=== PATIENT | female | born 1980 | race Caucasian/White ===

== ENCOUNTER 2016-12-08 11:44 | Emergency (ER) | payer OTHER ==
--- NOTE | 2016-12-08 14:00 | DIAGNOSTIC IMAGING REPORT ---
PROCEDURE: XR ANKLE 3 OR 4 VIEWS - RIGHT INDICATION: TRAUMA/INJURY TECHNIQUE: Four views. COMPARISON: None. FINDINGS: No fracture or dislocation. Normal ankle mortise. Prominent soft tissue swelling laterally. IMPRESSION: 1. Soft tissue swelling
--- NOTE | 2016-12-08 14:07 | ED ORDER SUMMARY ---
..... Patient: MICH LOVE OrderSheet [facility] VisitID: [id number] [address] [place] [address] 36y, F Registration Date/Time: 12/08/2016 ORDER SHEET Weight: 117.9 kg (stated) Allergies: Guaifenesin, morphine GENERAL ORDERS: Ankle 3 or 4V Right Urgent (12:15 12/08/2016 MWinterer R.N. per protocol) (Ack 12:23 Anders) (12:35 Dawit) Brigido Wrap (14:07 12/08/2016 HBivens A.R.N.P.) (14:18 MWinterer R.N.) MEDICATION ORDERS: Toradol IM 60 mg (NOW) (12:22 12/08/2016 HBivens A.R.N.P.) (Ack 12:23 MWinterer R.N.) (12:36 MWinterer R.N.) Hydrocodone-APAP PO 5/325 mg (NOW, HIGH ALERT MEDICATION) (13:54 12/08/2016 HBivens A.R.N.P.) (13:56 MWinterer R.N.) IV FLUIDS: ORDER SHEET NOTES: [Electronically signed by Maria De Jesus Mack A.R.N.P. (14:19 12/08/2016)] [Electronically signed by Keerthi Bell R.N. (14:27 12/08/2016)] [Electronically locked/signed by Keerthi Bell R.N. (14:27 12/08/2016)]
--- NOTE | 2016-12-08 14:07 | ED ORDER SUMMARY ---
..... Patient: MICH LOVE OrderSheet [facility] VisitID: [id number] [address] [place] [address] 36y, F Registration Date/Time: 12/08/2016 ORDER SHEET Weight: 117.9 kg (stated) Allergies: Guaifenesin, morphine GENERAL ORDERS: Ankle 3 or 4V Right Urgent (12:15 12/08/2016 MWinterer R.N. per protocol) (Ack 12:23 Anders) (12:35 Dawit) Brigido Wrap (14:07 12/08/2016 HBivens A.R.N.P.) (14:18 MWinterer R.N.) MEDICATION ORDERS: Toradol IM 60 mg (NOW) (12:22 12/08/2016 HBivens A.R.N.P.) (Ack 12:23 MWinterer R.N.) (12:36 MWinterer R.N.) Hydrocodone-APAP PO 5/325 mg (NOW, HIGH ALERT MEDICATION) (13:54 12/08/2016 HBivens A.R.N.P.) (13:56 MWinterer R.N.) IV FLUIDS: ORDER SHEET NOTES: [Electronically signed by Maria De Jesus Mack A.R.N.P. (14:19 12/08/2016)] [Electronically signed by Keerthi Bell R.N. (14:27 12/08/2016)] [Electronically locked/signed by Keerthi Bell R.N. (14:27 12/08/2016)]
--- NOTE | 2016-12-08 14:07 | ED NURSING NOTES ---
Clinical Report - Nurses [facility] [address] [place] [address] 12/08/2016 11:46 Patient: MICH LOVE TRIAGE Acuity: LEVEL 4. Chief Complaint: INJURY TO RIGHT ANKLE. Alert. No acute distress. SEPSIS SCREEN: Sepsis Screen. Negative (no infection suspected/documented). SACHA COMA SCORE: Sacha Coma Scale: 15- eyes open spontaneously (4); best verbal response- oriented x 4 (5); best motor response- obeys commands (6). --12:12 Keerthi Bell R.N. 12:03 12/08/16. BP: 132/94. HR: 88. RR: 12. O2 saturation: 100% on room air. Temp: 97.7 F (oral). Pain level now: 06/03. --12:12 Keerthi Bell R.N. Weight: 117.9 kg stated. Height/Length: 66 inches Per Patient. BMI: 42. --12:08 Keerthi Bell R.N. Medications Prazosin HCl Oral, at bedtime (2mg 1mg). Resperadone, at bedtime. --12:09 Keerthi Bell R.N. Hydrocodone-Acetaminophen Oral (Tablet 10-325 mg). --12:09 Keerthi Bell R.N. Trilictal 600 mg, 3x a day. --12:10 Keerthi Bell R.N. Allergies Guaifenesin. Definite Moderate(vomiting) morphine. Definite Severe(vomiting) (FRANCIS's) --12:10 Keerthi Bell R.N. Medication/allergy information source: the patient. --12:12 Keerthi Bell R.N. History Arrived by private vehicle. Historian: patient. Accompanied by (rey). Primary physician (Maryjo). This occurred just prior to arrival. Mechanism of injury: sustained a twisting injury. ( Pt states she was standing on a chair is is uncertain of how she hurt her ankle, but states she fell off chair but denies landing on her ankle.). Treatment PATTERNMAKER ALL AROUND: Applied bandage and ice. Took Tylenol. PAST MEDICAL HX: Last normal menstrual period now. SOCIAL HX: Current every day heavy tobacco smoker- less than 1 pack per day. No alcohol use or drug use. FALL RISK ASSESSMENT: Fall risk assessment completed. No fall risk identified. NUTRITIONAL RISK ASSESSMENT: The nutritional risk assessment revealed no deficiencies. FUNCTIONAL ASSESSMENT: Functional assessment: no impairments noted. LEARNING NEEDS ASSESSMENT: The learning needs assessment revealed no barriers. SKIN INTEGRITY ASSESSMENT: Skin integrity risk assessment completed. No skin integrity risk identified. --12:12 Keerthi Bell R.N. PROBLEMS: Abnormal Test. Diarrhea. Vomiting. Abdominal Pain. Back Pain. Polycystic Ovary Disease. Substance Abuse. ADHD - Attention Deficit Hyperactivity Disorder. Anxiety Reaction. Bipolar Disorder. PTSD. Muscle Strain, Lower Extremity. Sprain. --12:10 Keerthi Bell R.N. ADDITIONAL SURGERIES: Cholecystectomy. --12:10 Keerthi Bell R.N. Interventions ID band on patient. To treatment room. --12:12 Keerthi Bell R.N. PHYSICAL ASSESSMENT Ambulatory to room. GENERAL / NEURO / PSYCH: Oriented X 4. Alert. Appears in no acute distress. EXTREMITIES: Limited ROM present. Capillary refill is less than 2 seconds in the extremities. Extremity pulses are within normal limits. Pain with weight bearing. Limping gait. Neuro-vascular status intact to the extremity. Right ankle: tenderness and swelling. SKIN: Skin intact. Skin is warm and dry. --12:13 Keerthi Bell R.N. NURSING PROGRESS NOTES Reassurance given. Two patient identifiers checked. Call light placed in reach. Side rails up x 1. Bed placed in lowest position. Brakes of bed on. Patient ready for evaluation- chart flagged and JAMB CUTTER notified. --12:13 Keerthi Bell R.N. 12:36 12/08/2016 Toradol (Ketorolac Tromethamine) IM 60 mg given. Given in the left anterior lateral thigh. Allergies verified and confirmed 5 rights. --12:36 Keerthi Bell R.N. 13:56 12/08/2016 Hydrocodone-APAP (Hydrocodone-Acetaminophen) PO 5/325 mg Tablets 1 tab given. Allergies verified, confirmed 5 rights and sedative warning given to the patient. --13:56 Keerthi Bell R.N. 13:59 12/08/16. The patient reports no complaints, she is calm and resting quietly and she has had no adverse reaction. --13:59 Keerthi Bell R.N. 14:18 12/08/16. 4 inch brianna bandage applied to right ankle by nurse; distal pulses intact, sensation intact and motor function within normal limits. --14:18 Keerthi Bell R.N. DISPOSITION / DISCHARGE Departure time: 14:15 Dec 08 2016. Condition at departure: improved and stable. No learning barriers present. Discharge instructions provided and reviewed with the patient. Reviewed medication(s) side effects, precautions, dosing and course information. Prescription(s) given to the patient. Patient verbalized understanding. Written instructions provided in Khmer. The patient was discharged by the nurse practitioner. She was discharged home and accompanied by watershed coordinator. She left the Emergency Department ambulatory and via private vehicle. Banking Specialist driving. --14:26 Keerthi Bell R.N. 14:25 12/08/16. BP: 157/93. HR: 88. RR: 12. O2 saturation: 100% on room air. Temp: 97.9 F (oral). Pain level now: 02/01. --14:26 Keerthi Bell R.N. Locked/Released at 12/08/2016 14:27 by Keerthi Bell R.N.
--- NOTE | 2016-12-08 14:07 | ED NURSING NOTES ---
Clinical Report - Nurses [facility] [address] [place] [address] 12/08/2016 11:46 Patient: MICH LOVE TRIAGE Acuity: LEVEL 4. Chief Complaint: INJURY TO RIGHT ANKLE. Alert. No acute distress. SEPSIS SCREEN: Sepsis Screen. Negative (no infection suspected/documented). SACHA COMA SCORE: Sacha Coma Scale: 15- eyes open spontaneously (4); best verbal response- oriented x 4 (5); best motor response- obeys commands (6). --12:12 Keerthi Bell R.N. 12:03 12/08/16. BP: 132/94. HR: 88. RR: 12. O2 saturation: 100% on room air. Temp: 97.7 F (oral). Pain level now: 06/03. --12:12 Keerthi Bell R.N. Weight: 117.9 kg stated. Height/Length: 66 inches Per Patient. BMI: 42. --12:08 Keerthi Bell R.N. Medications Prazosin HCl Oral, at bedtime (2mg 1mg). Resperadone, at bedtime. --12:09 Keerthi Bell R.N. Hydrocodone-Acetaminophen Oral (Tablet 10-325 mg). --12:09 Keerthi Bell R.N. Trilictal 600 mg, 3x a day. --12:10 Keerthi Bell R.N. Allergies Guaifenesin. Definite Moderate(vomiting) morphine. Definite Severe(vomiting) (FRANCIS's) --12:10 Keerthi Bell R.N. Medication/allergy information source: the patient. --12:12 Keerthi Bell R.N. History Arrived by private vehicle. Historian: patient. Accompanied by (rey). Primary physician (Maryjo). This occurred just prior to arrival. Mechanism of injury: sustained a twisting injury. ( Pt states she was standing on a chair is is uncertain of how she hurt her ankle, but states she fell off chair but denies landing on her ankle.). Treatment EDUCATION SITE MANAGER: Applied bandage and ice. Took Tylenol. PAST MEDICAL HX: Last normal menstrual period now. SOCIAL HX: Current every day heavy tobacco smoker- less than 1 pack per day. No alcohol use or drug use. FALL RISK ASSESSMENT: Fall risk assessment completed. No fall risk identified. NUTRITIONAL RISK ASSESSMENT: The nutritional risk assessment revealed no deficiencies. FUNCTIONAL ASSESSMENT: Functional assessment: no impairments noted. LEARNING NEEDS ASSESSMENT: The learning needs assessment revealed no barriers. SKIN INTEGRITY ASSESSMENT: Skin integrity risk assessment completed. No skin integrity risk identified. --12:12 Keerthi Bell R.N. PROBLEMS: Abnormal Test. Diarrhea. Vomiting. Abdominal Pain. Back Pain. Polycystic Ovary Disease. Substance Abuse. ADHD - Attention Deficit Hyperactivity Disorder. Anxiety Reaction. Bipolar Disorder. PTSD. Muscle Strain, Lower Extremity. Sprain. --12:10 Keerthi Bell R.N. ADDITIONAL SURGERIES: Cholecystectomy. --12:10 Keerthi Bell R.N. Interventions ID band on patient. To treatment room. --12:12 Keerthi Bell R.N. PHYSICAL ASSESSMENT Ambulatory to room. GENERAL / NEURO / PSYCH: Oriented X 4. Alert. Appears in no acute distress. EXTREMITIES: Limited ROM present. Capillary refill is less than 2 seconds in the extremities. Extremity pulses are within normal limits. Pain with weight bearing. Limping gait. Neuro-vascular status intact to the extremity. Right ankle: tenderness and swelling. SKIN: Skin intact. Skin is warm and dry. --12:13 Keerthi Bell R.N. NURSING PROGRESS NOTES Reassurance given. Two patient identifiers checked. Call light placed in reach. Side rails up x 1. Bed placed in lowest position. Brakes of bed on. Patient ready for evaluation- chart flagged and RN CAMP notified. --12:13 Keerthi Bell R.N. 12:36 12/08/2016 Toradol (Ketorolac Tromethamine) IM 60 mg given. Given in the left anterior lateral thigh. Allergies verified and confirmed 5 rights. --12:36 Keerthi Bell R.N. 13:56 12/08/2016 Hydrocodone-APAP (Hydrocodone-Acetaminophen) PO 5/325 mg Tablets 1 tab given. Allergies verified, confirmed 5 rights and sedative warning given to the patient. --13:56 Keerthi Bell R.N. 13:59 12/08/16. The patient reports no complaints, she is calm and resting quietly and she has had no adverse reaction. --13:59 Keerthi Bell R.N. 14:18 12/08/16. 4 inch brianna bandage applied to right ankle by nurse; distal pulses intact, sensation intact and motor function within normal limits. --14:18 Keerthi Bell R.N. DISPOSITION / DISCHARGE Departure time: 14:15 Dec 08 2016. Condition at departure: improved and stable. No learning barriers present. Discharge instructions provided and reviewed with the patient. Reviewed medication(s) side effects, precautions, dosing and course information. Prescription(s) given to the patient. Patient verbalized understanding. Written instructions provided in Yoruba. The patient was discharged by the nurse practitioner. She was discharged home and accompanied by supplier quality. She left the Emergency Department ambulatory and via private vehicle. Unit Receptionist driving. --14:26 Keerthi Bell R.N. 14:25 12/08/16. BP: 157/93. HR: 88. RR: 12. O2 saturation: 100% on room air. Temp: 97.9 F (oral). Pain level now: 02/01. --14:26 Keerthi Bell R.N. Locked/Released at 12/08/2016 14:27 by Keerthi Bell R.N.
--- NOTE | 2016-12-08 14:07 | ED CLINICAL REPORT ---
Clinical Report - Physicians/Mid Levels [facility] [address] [place] [address] 12/08/2016 11:46 Patient: MICH LOVE Time Seen: 12:16; initial patient contact, initial documentation, patient care assumed. Arrived- By private vehicle. Historian- patient. HISTORY OF PRESENT ILLNESS Chief Complaint: Injury to the right ankle. The injury happened just prior to arrival. The patient slipped and sustained an inversion and eversion injury. Occurred at home. Patient is experiencing moderate pain. Patient denies injury to the head or neck. No other injury. REVIEW OF SYSTEMS The patient complains of pain on weight bearing. She has had swelling. No tingling, weakness, numbness or skin laceration. All systems otherwise negative, except as recorded above. PAST HISTORY See nurses notes. PROBLEMS: Abnormal Test. Diarrhea. Vomiting. Abdominal Pain. Back Pain. Polycystic Ovary Disease. Substance Abuse. ADHD - Attention Deficit Hyperactivity Disorder. Anxiety Reaction. Bipolar Disorder. PTSD. Muscle Strain, Lower Extremity. Sprain. --12:10 Keerthi Bell R.N. ADDITIONAL SURGERIES: Cholecystectomy. --12:10 Keerthi Bell R.N. SOCIAL HISTORY Heavy tobacco smoker. No alcohol use or drug use. No recent travel. Is a local resident. FAMILY HISTORY No significant family medical history. ADDITIONAL NOTES The nursing notes have been reviewed with agreement regarding the chief complaint, HPI, ROS, PMH and patient medications and allergies. PHYSICAL EXAM Vital Signs: 12/08/2016 12:03 BP: 132/94. HR: 88. RR: 12. O2 saturation: 100%. Temp: 97.7 F. Pain level now: 10. Have been reviewed as normal and appear to be correct. Appearance: Alert. Oriented X3. No acute distress. Head: Head atraumatic. Eyes: Pupils equal, round and reactive to light. Eyes normal inspection. Respiratory: No respiratory distress. Skin: Skin intact. Skin warm and dry. Extremities: Ankle injury present. Right lateral ankle: mild tenderness and swelling of the lateral malleolus. Limited ROM secondary to pain (diminished plantar flexion, dorsiflexion, inversion and eversion). Neurovascular intact distally. No ligamentous laxity present. No joint effusion. No erythema, laceration, abrasion, ecchymosis or puncture wound. No foot injury. Foot and ankle exam otherwise negative. Extremities otherwise negative. Gait: Abnormal gait. Gait not tested due to pain. (limped in for nurse). Neuro, Vascular and Tendons: Vascular status intact. Sensation intact. Motor intact. Tendon function intact. Neuro: Oriented X 3. No motor deficit. No sensory deficit. Note: isolated injury to ankle. LABS, X-RAYS, AND EKG X-Rays: X-rays are normal and reveal no acute disease (and reviewed by dr healy). Right ankle negative. The X-rays were independently viewed by me. PROGRESS AND PROCEDURES Patient and spouse counseled in person regarding the patient's stable condition, test results and diagnosis. 1400. Differential Diagnosis: Other possible considerations: fx vs sprain. Above considerations are based on history, physical exam and X-Ray data. Differential diagnosis was discussed with patient. Disposition: Discharged home in good and improved condition (14:07). Condition: good and stable. CLINICAL IMPRESSION Sprain of the tibiofibular ligament of the right ankle. INSTRUCTIONS Apply ice for 20 minutes four times a day for two days until better. Don't apply ice directly to skin. Wear elastic wrap (Brigido wrap) as directed for one weeks until better. Elevate affected areas above chest level for two days until better. Warnings: GENERAL WARNINGS: Return or contact your physician immediately if your condition worsens or changes unexpectedly, if not improving as expected, or if other problems arise. Specifically return if problem worsens. Prescription Medications: Naproxen 500 mg tablets: take 1 orally every 12 hours as needed for pain. Dispense twenty (20). No refills. [place] 5 mg / 325 mg tablets: take 1 orally every 6 hours as needed for pain. Dispense ten (10). No refill. Follow-up: Follow up with your doctor in about one week as needed. Call for an appointment. Summary of care provided to patient. Understanding of the discharge instructions verbalized by patient. (Electronically signed by Maria De Jesus Mack A.R.N.P. 12/08/2016 14:19)
--- NOTE | 2016-12-08 14:27 | ED MED RECONCILIATION SUMMARY ---
Patient: MICH LOVE Medication Reconciliation Report [facility] VisitID: [id number] [address] [place] [address] 36y, F Registration Date/Time: 12/08/2016 Weight: 117.9 kg Height/Length: 66 in. BMI: 42.0 ALLERGIES: Guaifenesin, morphine The patient's Home Medications are listed below: THE FOLLOWING MEDICATIONS NEED TO BE RECONCILED: Hydrocodone-Acetaminophen Oral (10-325 mg) Prazosin HCl Oral, at bedtime, 2mg 1mg Resperadone, at bedtime Trilictal 600 mg, 3x a day The source(s) of the original Home Medication information: patient The following Medications were given to the patient in the Emergency Department: Toradol [IM] IM 60 mg, administered: 12/08/2016 12:36:00 PM Hydrocodone-APAP [PO] PO 1 tab, administered: 12/08/2016 1:56:00 PM The following Medications were prescribed to the patient: Naproxen 500 mg tablets: take 1 orally every 12 hours as needed for pain. Dispense twenty (20). No refills. -- Maria De Jesus Mack, Ciera.R.N.P. [place] 5 mg / 325 mg tablets: take 1 orally every 6 hours as needed for pain. Dispense ten (10). No refill. -- Maria De Jesus Mack A.R.N.P.
--- NOTE | 2016-12-08 14:27 | ED MED RECONCILIATION SUMMARY ---
Patient: MICH LOVE Medication Reconciliation Report [facility] VisitID: [id number] [address] [place] [address] 36y, F Registration Date/Time: 12/08/2016 Weight: 117.9 kg Height/Length: 66 in. BMI: 42.0 ALLERGIES: Guaifenesin, morphine The patient's Home Medications are listed below: THE FOLLOWING MEDICATIONS NEED TO BE RECONCILED: Hydrocodone-Acetaminophen Oral (10-325 mg) Prazosin HCl Oral, at bedtime, 2mg 1mg Resperadone, at bedtime Trilictal 600 mg, 3x a day The source(s) of the original Home Medication information: patient The following Medications were given to the patient in the Emergency Department: Toradol [IM] IM 60 mg, administered: 12/08/2016 12:36:00 PM Hydrocodone-APAP [PO] PO 1 tab, administered: 12/08/2016 1:56:00 PM The following Medications were prescribed to the patient: Naproxen 500 mg tablets: take 1 orally every 12 hours as needed for pain. Dispense twenty (20). No refills. -- Maria De Jesus Mack, Ciera.R.N.P. [place] 5 mg / 325 mg tablets: take 1 orally every 6 hours as needed for pain. Dispense ten (10). No refill. -- Maria De Jesus Mack A.R.N.P.
--- NOTE | 2016-12-08 14:27 | ED DISCHARGE INSTRUCTIONS ---
Patient: MICH LOVE General Instructions [facility] VisitID: [id number] [place] [address] 36y, F Registration Date/Time: 12/08/2016 Sprain of the tibiofibular ligament of the right ankle. INSTRUCTIONS Apply ice for 20 minutes four times a day for two days until better. Don't apply ice directly to skin. Wear elastic wrap (Brigido wrap) as directed for one weeks until better. Elevate affected areas above chest level for two days until better. Warnings: GENERAL WARNINGS: Return or contact your physician immediately if your condition worsens or changes unexpectedly, if not improving as expected, or if other problems arise. Specifically return if problem worsens. Prescription Medications: Naproxen 500 mg tablets: take 1 orally every 12 hours as needed for pain. Dispense twenty (20). No refills. Benton 5 mg / 325 mg tablets: take 1 orally every 6 hours as needed for pain. Dispense ten (10). No refill. Follow-up: Follow up with your doctor in about one week as needed. Call for an appointment. Summary of care provided to patient. Understanding of the discharge instructions verbalized by patient. ADDITIONAL INFORMATION Sprain, Ankle,With X-Ray A sprain is an injury to the ligaments or capsule that holds a joint together. There are no broken bones. Most sprains take from four to six weeks to heal. If the ligament is completely torn (severe sprain), it can take several months to recover. Mild to moderate sprains may be treated with an elastic wrap or an in-shoe splint to provide support and prevent re-injury. A mild sprain may not require any additional support. A severe sprain may require surgery to repair. Home care The following guidelines will help you care for your injury at home: Stay off the injured leg as much as possible until you can walk on it without pain. If you have a lot of pain with walking, crutches or a walker may be prescribed. (These can be rented or purchased at many pharmacies and surgical or orthopedic supply stores). Follow your doctor's advice regarding when to begin bearing weight on that leg. Keep your leg elevated to reduce pain and swelling. When sleeping, place a pillow under the injured leg. When sitting, support the injured leg so it is level with your waist. This is very important during the first 48 hours. Apply an ice pack (ice cubes in a plastic bag, wrapped in a towel) over the injured area for 20 minutes every 12 hours the first day. You can place the ice pack directly over the splint/cast. If you were given a boot, open it to apply the ice pack. Continue with ice packs 34 times a day for the next two days, then as needed for the relief of pain and swelling. You may use acetaminophen or ibuprofen to control pain, unless another pain medicine was prescribed. If you have chronic liver or kidney disease or ever had a stomach ulcer or GI bleeding, talk with your doctor before using these medicines. You may return to sports after healing, when you can run without pain. A sprained ankle is at risk for re-injury during the first six weeks. During that time, protect your ankle with an in-shoe splint that prevents tilting of your ankle from side to side. This is very important if you do active work or play sports during that time. Follow-up care Any X-rays you had today dont show any broken bones, breaks, or fractures. Sometimes fractures dont show up on the first X-ray. Bruises and sprains can sometimes hurt as much as a fracture. These injuries can take time to heal completely. If your symptoms dont improve or they get worse, talk with your doctor. You may need a repeat X-ray. When to seek medical care Get prompt medical attention if any of the following occur: The plaster cast or splint gets wet or soft The fiberglass cast or splint gets wet and does not dry for 24 hours Pain or swelling increases, or redness appears Toes become cold, blue, numb or tingly Re-injure your ankle Brigido Wrap An "Brigido Bandage" refers to any elastic bandage wrap (2-6" wide). This is used to apply support and compression to an arm or leg. It will help prevent or reduce swelling also. When applying the bandage, it should not be stretched too tightly. A tight Brigido Wrap will reduce circulation and cause tingling or numbness in the hand or foot. It may increase the pain under the bandage. If you get these symptoms, remove the wrap and rest the limb. Symptoms should go away within 1-2 hours. Once symptoms go away, reapply the bandage with less stretch. If symptoms do not go away after 1-2 hours with the bandage off, call your doctor or return to this facility promptly. Naproxen Sodium Oral tablet What is this medicine? NAPROXEN (na PROX en) is a non-steroidal anti-inflammatory drug (NSAID). It is used to reduce swelling and to treat pain. This medicine may be used for dental pain, headache, or painful monthly periods. It is also used for painful joint and muscular problems such as arthritis, tendinitis, bursitis, and gout. How should I use this medicine? Take this medicine by mouth with a glass of water. Follow the directions on the prescription label. Take it with food if your stomach gets upset. Try to not lie down for at least 10 minutes after you take it. Take your medicine at regular intervals. Do not take your medicine more often than directed. Long-term, continuous use may increase the risk of heart attack or stroke. A special MedGuide will be given to you by the pharmacist with each prescription and refill. Be sure to read this information carefully each time. Talk to your set decorator regarding the use of this medicine in children. Special care may be needed. What side effects may I notice from receiving this medicine? Side effects that you should report to your doctor or health out of school hours care worker as soon as possible: black or bloody stools, blood in the urine or vomit blurred vision chest pain difficulty breathing or wheezing nausea or vomiting severe stomach pain skin rash, skin redness, blistering or peeling skin, hives, or itching slurred speech or weakness on one side of the body swelling of eyelids, throat, lips unexplained weight gain or swelling unusually weak or tired yellowing of eyes or skin Side effects that usually do not require medical attention (report to your doctor or health out of school hours care worker if they continue or are bothersome): constipation headache heartburn What may interact with this medicine? alcohol aspirin cidofovir diuretics lithium methotrexate other drugs for inflammation like ketorolac or prednisone pemetrexed probenecid warfarin What if I miss a dose? If you miss a dose, take it as soon as you can. If it is almost time for your next dose, take only that dose. Do not take double or extra doses. Where should I keep my medicine? Keep out of the reach of children. Store at room temperature between 15 and 30 degrees C (59 and 86 degrees F). Keep container tightly closed. Throw away any unused medicine after the expiration date. What should I tell my health care provider before I take this medicine? They need to know if you have any of these conditions: asthma cigarette smoker drink more than 3 alcohol containing drinks a day heart disease or circulation problems such as heart failure or leg edema (fluid retention) high blood pressure kidney disease liver disease stomach bleeding or ulcers an unusual or allergic reaction to naproxen, aspirin, other NSAIDs, other medicines, foods, dyes, or preservatives or trying to get breast-feeding What should I watch for while using this medicine? Tell your doctor or health out of school hours care worker if your pain does not get better. Talk to your doctor before taking another medicine for pain. Do not treat yourself. This medicine does not prevent heart attack or stroke. In fact, this medicine may increase the chance of a heart attack or stroke. The chance may increase with longer use of this medicine and in people who have heart disease. If you take aspirin to prevent heart attack or stroke, talk with your doctor or health out of school hours care worker. Do not take other medicines that contain aspirin, ibuprofen, or naproxen with this medicine. Side effects such as stomach upset, nausea, or ulcers may be more likely to occur. Many medicines available without a prescription should not be taken with this medicine. This medicine can cause ulcers and bleeding in the stomach and intestines at any time during treatment. Do not smoke cigarettes or drink alcohol. These increase irritation to your stomach and can make it more susceptible to damage from this medicine. Ulcers and bleeding can happen without warning symptoms and can cause . You may get drowsy or dizzy. Do not drive, use machinery, or do anything that needs mental alertness until you know how this medicine affects you. Do not stand or sit up quickly, especially if you are an older patient. This reduces the risk of dizzy or fainting spells. This medicine can cause you to bleed more easily. Try to avoid damage to your teeth and gums when you brush or floss your teeth. Hydrocodone Bitartrate, Acetaminophen Oral tablet What is this medicine? ACETAMINOPHEN; HYDROCODONE (a set a GORGE jeanie fen; vamshi droe KOE done) is a pain reliever. It is used to treat mild to moderate pain. How should I use this medicine? Take this medicine by mouth. Swallow it with a full glass of water. Follow the directions on the prescription label. If the medicine upsets your stomach, take the medicine with food or milk. Do not take more than you are told to take. Talk to your set decorator regarding the use of this medicine in children. This medicine is not approved for use in children. What side effects may I notice from receiving this medicine? Side effects that you should report to your doctor or health out of school hours care worker as soon as possible: allergic reactions like skin rash, itching or hives, swelling of the face, lips, or tongue breathing problems confusion feeling faint or lightheaded, falls stomach pain yellowing of the eyes or skin Side effects that usually do not require medical attention (report to your doctor or health out of school hours care worker if they continue or are bothersome): nausea, vomiting stomach upset What may interact with this medicine? alcohol antihistamines isoniazid medicines for depression, anxiety, or psychotic disturbances medicines for sleep muscle relaxants naltrexone narcotic medicines (opiates) for pain phenobarbital ritonavir tramadol What if I miss a dose? If you miss a dose, take it as soon as you can. If it is almost time for your next dose, take only that dose. Do not take double or extra doses. Where should I keep my medicine? Keep out of the reach of children. This medicine can be abused. Keep your medicine in a safe place to protect it from theft. Do not share this medicine with anyone. Selling or giving away this medicine is dangerous and against the law. Store at room temperature between 15 and 30 degrees C (59 and 86 degrees F). Protect from light. Keep container tightly closed. Throw away any unused medicine after the expiration date. Discard unused medicine and used packaging carefully. Pets and children can be harmed if they find used or lost packages. What should I tell my health care provider before I take this medicine? They need to know if you have any of these conditions: brain tumor Crohn's disease, inflammatory bowel disease, or ulcerative colitis drink more than 3 alcohol-containing drinks per day drug abuse or addiction head injury heart or circulation problems kidney disease or problems going to the bathroom liver disease lung disease, asthma, or breathing problems an unusual or allergic reaction to acetaminophen, hydrocodone, other opioid analgesics, other medicines, foods, dyes, or preservatives or trying to get breast-feeding What should I watch for while using this medicine? Tell your doctor or health out of school hours care worker if your pain does not go away, if it gets worse, or if you have new or a different type of pain. You may develop tolerance to the medicine. Tolerance means that you will need a higher dose of the medicine for pain relief. Tolerance is normal and is expected if you take the medicine for a long time. Do not suddenly stop taking your medicine because you may develop a severe reaction. Your body becomes used to the medicine. This does NOT mean you are addicted. Addiction is a behavior related to getting and using a drug for a non-medical reason. If you have pain, you have a medical reason to take pain medicine. Your doctor will tell you how much medicine to take. If your doctor wants you to stop the medicine, the dose will be slowly lowered over time to avoid any side effects. You may get drowsy or dizzy when you first start taking the medicine or change doses. Do not drive, use machinery, or do anything that may be dangerous until you know how the medicine affects you. Stand or sit up slowly. There are different types of narcotic medicines (opiates) for pain. If you take more than one type at the same time, you may have more side effects. Give your health care provider a list of all medicines you use. Your doctor will tell you how much medicine to take. Do not take more medicine than directed. Call emergency for help if you have problems breathing. The medicine will cause constipation. Try to have a bowel movement at least every 2 to 3 days. If you do not have a bowel movement for 3 days, call your doctor or health out of school hours care worker. Too much acetaminophen can be very dangerous. Do not take Tylenol (acetaminophen) or medicines that contain acetaminophen with this medicine. Many non-prescription medicines contain acetaminophen. Always read the labels carefully. You have been given the following additional information: Sprain, Ankle, With X-Ray Brigido Wrap Naproxen Sodium Oral tablet Hydrocodone Bitartrate, Acetaminophen Oral tablet (Electronically signed by Maria De Jesus Mack A.R.N.P. 12/08/2016 14:19)
--- NOTE | 2016-12-08 14:27 | ED MAR SUMMARY ---
..... Medication Administration Record [facility] [address] [place] [address] Patient: MICH LOVE Visit ID: [id number] 36y, F Weight: 117.9 kg Height/Length: 66 in BMI: 42 ALLERGIES: Guaifenesin, morphine Given 12:36 12/08/2016 Keerthi Bell, R.N. Medication Administered: TORADOL [IM] (KETOROLAC TROMETHAMINE), Dose: 60 mg IM. Medication Ordered: Toradol IM 60 mg (NOW). Given 13:56 12/08/2016 Keerthi Bell, R.N. Medication Administered: HYDROCODONE-APAP [PO] (HYDROCODONE-ACETAMINOPHEN), Dose: 1 tab 5/325 mg Tablets PO. Medication Ordered: Hydrocodone-APAP PO 5/325 mg (NOW, HIGH ALERT MEDICATION).
--- NOTE | 2016-12-08 14:27 | ED MAR SUMMARY ---
..... Medication Administration Record [facility] [address] [place] [address] Patient: MICH LOVE Visit ID: [id number] 36y, F Weight: 117.9 kg Height/Length: 66 in BMI: 42 ALLERGIES: Guaifenesin, morphine Given 12:36 12/08/2016 Keerthi Bell, R.N. Medication Administered: TORADOL [IM] (KETOROLAC TROMETHAMINE), Dose: 60 mg IM. Medication Ordered: Toradol IM 60 mg (NOW). Given 13:56 12/08/2016 Keerthi Bell, R.N. Medication Administered: HYDROCODONE-APAP [PO] (HYDROCODONE-ACETAMINOPHEN), Dose: 1 tab 5/325 mg Tablets PO. Medication Ordered: Hydrocodone-APAP PO 5/325 mg (NOW, HIGH ALERT MEDICATION).
== END 2016-12-08 14:15 | disposition home or self-care (01) ==
LOC: ED SRH 11:44
DX: S93.431A Sprain of tibiofibular ligament of right ankle, initial encounter (principal); W18.40XA Slipping, tripping and stumbling without falling, unspecified, initial encounter; Y93.9 Activity, unspecified; Y92.009 Unspecified place in unspecified non-institutional (private) residence as the place of occurrence of the external cause; Y99.9 Unspecified external cause status; F17.210 Nicotine dependence, cigarettes, uncomplicated; Z88.5 Allergy status to narcotic agent; Z88.8 Allergy status to other drugs, medicaments and biological substances

== ENCOUNTER 2017-04-27 08:59 | Emergency (ER) | payer OTHER ==
--- NOTE | 2017-04-27 10:54 | ED ORDER SUMMARY ---
..... Patient: MICH LOVE OrderSheet Merged [facility] VisitID: [id number] [address] [place] [address] 36y, F Registration Date/Time: 04/27/2017 ORDER SHEET Weight: 130.6 kg (stated) Allergies: morphine, Guaifenesin GENERAL ORDERS: UA-Culture if indicated Urgent (09:04/27/2017 Jenn Hein) (Ack 9:08 Isadora) (9:46 SRejose enrique R.N.) Urine Urgent (09:04/27/2017 Jenn Hein) (Ack 9:08 Isadora) (9:46 Reina R.N.) Bladder Scan (09:04/27/2017 Jenn Hein) (Ack 9:15 Reina R.N.) (9:46 Reina R.N.) MEDICATION ORDERS: Pyridium PO 200 mg (NOW) (10:51 04/27/2017 Jenn Hein) (Ack 10:56 SRejose enrique R.N.) (11:03 Reina R.N.) Macrobid PO 100 mg (NOW) (10:52 04/27/2017 Jenn Hein) (Ack 10:56 Reina R.N.) (11:03 Reina R.N.) IV FLUIDS: ORDER SHEET NOTES: [Electronically signed by Tiffany Westbrook R.N. (11:04 04/27/2017)] [Electronically signed by Rashad Mcdaniel Dr. (14:01 04/28/2017)] [Electronically locked/signed by Tiffany Westbrook R.N. (11:04 04/27/2017)]
--- NOTE | 2017-04-27 10:54 | ED ORDER SUMMARY ---
..... Patient: MICH LOVE OrderSheet [facility] VisitID: [id number] [address] [place] [address] 36y, F Registration Date/Time: 04/27/2017 ORDER SHEET Weight: 130.6 kg (stated) Allergies: morphine, Guaifenesin GENERAL ORDERS: UA-Culture if indicated Urgent (09:04/27/2017 Jenn Hein) (Ack 9:08 Isaodra) (9:46 SRejose enrique R.N.) Urine Urgent (09:04/27/2017 Jenn Hein) (Ack 9:08 Isadora) (9:46 Reina R.N.) Bladder Scan (09:04/27/2017 Jenn Hein) (Ack 9:15 Reina R.N.) (9:46 Reina R.N.) MEDICATION ORDERS: Pyridium PO 200 mg (NOW) (10:51 04/27/2017 Jenn Hein) (Ack 10:56 SRejose enrique R.N.) (11:03 Reina R.N.) Macrobid PO 100 mg (NOW) (10:52 04/27/2017 Jenn Hein) (Ack 10:56 Reina R.N.) (11:03 Reina R.N.) IV FLUIDS: ORDER SHEET NOTES: [Electronically signed by Tiffany Westbrook R.N. (11:04 04/27/2017)] [Electronically signed by Rashad Mcdaniel Dr. (14:01 04/28/2017)] [Electronically locked/signed by Tiffany Westbrook R.N. (11:04 04/27/2017)]
--- NOTE | 2017-04-27 10:54 | ED NURSING NOTES ---
Clinical Report - Nurses [facility] [address] [place] [address] 04/27/2017 9:00 Patient: MICH LOVE TRIAGE Triage time 09:06. Acuity: LEVEL 4. Chief Complaint: VAGINAL DISCHARGE and (" I can't pee"). Alert. No acute distress. SEPSIS SCREEN: Sepsis Screen. Negative (no infection suspected/documented). OFELIA COMA SCORE: Pooler Coma Scale: 15- eyes open spontaneously (4); best verbal response- oriented x 4 (5); best motor response- obeys commands (6). --09:14 Tiffany Westbrook R.N. 09:05 04/27/17. BP: 119/67. HR: 114. RR: 16. O2 saturation: 98%. Temp: 97.4 F. Pain level now: 410. Additional comments: RE HR: pt. states she does not like hospitals and is anxious. --09:14 Tiffany Westbrook R.N. Weight: 130.6 kg stated. Height/Length: 67 inches. BMI: 45.1. --09:13 Tiffany Westbrook R.N. Medications Prazosin HCl Oral 4mg, at bedtime. --09:09 Tiffany Westbrook R.N. Trileptal Oral 900mg , at bedtime. --09:10 Tiffany Westbrook R.N. RisperiDONE Oral 4 mg, at bedtime. --09:11 Tiffany Westbrook R.N. LaMICtal Oral (Tablet 150 mg), at bedtime. --09:11 Tiffany Westbrook R.N. MetFORMIN HCl Oral 1200mg daily. --09:11 Tiffany Westbrook R.N. Gabapentin Oral 1200mg , daily. --09:11 Tiffany Westbrook R.N. Vicodin Oral 10 mg, 2x a day. --09:12 Tiffany Westbrook R.N. Loratadine Oral. --09:12 Pietro, Tiffany, R.N. Omeprazole Oral. --09:12 Tiffany Westbrook R.N. Topamax Oral. --:13 Tiffany Westbrook R.N. Allergies morphine. --:13 Tiffany Westbrook R.N. Guaifenesin. --:13 Tiffany Westbrook R.N. History Arrived by private vehicle. Historian: patient. Accompanied by (Norma). Primary physician ([facility]). This started last night. PAST MEDICAL HX: Immunizations: up-to-date. Last normal menstrual period- 1 week ago. SOCIAL HX: Heavy tobacco smoker (cigarette). Regular alcohol use. (weekends). History of IV drug use: cocaine, narcotics, heroin, methamphetamines, marijuana, crack, benzodiazepines. (lasted used 2008). ABUSE ASSESSMENT: Abuse assessment: The patient was asked "Do you feel safe in your home?" and "Has anyone hurt you or threatened to hurt you?". No report of abuse. SELF HARM ASSESSMENT: A self harm assessment was performed. The patient answered "no" to the question "Do you have thoughts of harming or killing yourself?" and "Have you recently had thoughts about harming or killing others?". NUTRITIONAL RISK ASSESSMENT: The nutritional risk assessment revealed no deficiencies. FUNCTIONAL ASSESSMENT: Functional assessment: no impairments noted. LEARNING NEEDS ASSESSMENT: The learning needs assessment revealed no barriers. --:14 Tiffany Westbrook R.N. PROBLEMS: Diarrhea. Vomiting. Abdominal Pain. Back Pain. Polycystic Ovary Disease. Substance Abuse. ADHD - Attention Deficit Hyperactivity Disorder. Anxiety Reaction. Bipolar Disorder. PTSD. Sprain. --:13 Tiffany Westbrook R.N. ADDITIONAL SURGERIES: Cholecystectomy. --:14 Tiffany Westbrook R.N. Interventions ID band on patient. Ambulatory. --:14 Tiffany Westbrook R.N. PHYSICAL ASSESSMENT Ambulatory to room. GENERAL / NEURO / PSYCH: Alert. Appears in no acute distress. HEENT: Mucous membranes are pink. RESPIRATORY: Respirations not labored. CVS: Capillary refill less than 2 seconds. GI / : Abdomen soft and nontender. A scant amount of vaginal discharge present ("bright yellow mucus"). SKIN: Skin is warm and dry. --:14 Tiffany Westbrook R.N. NURSING PROGRESS NOTES Head of bed elevated. Two patient identifiers checked. Call light placed in reach. Side rails up x 2. Bed placed in lowest position. Brakes of bed on. Patient ready for evaluation- chart flagged. --09:15 Tiffany Westbrook R.N. ( Bladder scanned: 17cc noted.). --09:45 Tiffany Westbrook R.N. Patient ID band checked for patient name, birthdate and medical record number: patient confirmed. Instructions provided to collect clean catch urine and patient verbalized understanding. Catheterized urine collected with return of yellow-colored clear urine; sample sent to lab for urinalysis. Specimen labeled in the presence of the patient (17cc drainged.). --09:46 Tiffany Westbrook R.N. 11:00 04/27/2017 Pyridium (Phenazopyridine HCl) PO 200 mg given. Allergies verified and confirmed 5 rights. --11:03 Tiffany Westbrook R.N. 11:00 04/27/2017 Macrobid PO 100 mg given. Allergies verified and confirmed 5 rights. --11:03 Tiffany Westbrook R.N. DISPOSITION / DISCHARGE 11:02. Departure time: 1102. Condition at departure: stable. No learning barriers present. Discharge instructions provided and reviewed with the patient. Reviewed medication(s) side effects, precautions, dosing and course information. Prescription(s) given to the patient. Reviewed referral to family practice for followup. Patient verbalized understanding. Written instructions provided in Persian. The patient was discharged home and accompanied by interventional pain physician. She left the Emergency Department ambulatory and via private vehicle. Interactive Account Manager driving. Medication list reviewed and validated. --11:04 Tiffany Westbrook R.N. 11:03 04/27/17. BP: 132/64. HR: 102. RR: 16. O2 saturation: 98%. Temp: 98.1 F. Pain level now 02/01. --11:04 Tiffany Westbrook R.N. Locked/Released at 04/27/2017 11:04 by Tiffany Westbrook R.N.
--- NOTE | 2017-04-27 10:54 | ED NURSING NOTES ---
Clinical Report - Nurses [facility] [address] [place] [address] 04/27/2017 9:00 Patient: MICH LOVE TRIAGE Triage time 09:06. Acuity: LEVEL 4. Chief Complaint: VAGINAL DISCHARGE and (" I can't pee"). Alert. No acute distress. SEPSIS SCREEN: Sepsis Screen. Negative (no infection suspected/documented). OFELIA COMA SCORE: [place] Coma Scale: 15- eyes open spontaneously (4); best verbal response- oriented x 4 (5); best motor response- obeys commands (6). --09:14 Tiffany Westbrook R.N. 09:05 04/27/17. BP: 119/67. HR: 114. RR: 16. O2 saturation: 98%. Temp: 97.4 F. Pain level now: 410. Additional comments: RE HR: pt. states she does not like hospitals and is anxious. --09:14 Tiffany Westbrook R.N. Weight: 130.6 kg stated. Height/Length: 67 inches. BMI: 45.1. --09:13 Tiffany Westbrook R.N. Medications Prazosin HCl Oral 4mg, at bedtime. --09:09 Tiffany Westbrook R.N. Trileptal Oral 900mg , at bedtime. --09:10 Tiffany Westbrook R.N. RisperiDONE Oral 4 mg, at bedtime. --09:11 Tiffany Westbrook R.N. LaMICtal Oral (Tablet 150 mg), at bedtime. --09:11 Tiffany Westbrook R.N. MetFORMIN HCl Oral 1200mg daily. --09:11 Tiffany Westbrook R.N. Gabapentin Oral 1200mg , daily. --09:11 Tiffany Westbrook R.N. Vicodin Oral 10 mg, 2x a day. --09:12 Tiffany Westbrook R.N. Loratadine Oral. --09:12 Pietro, Tiffany, R.N. Omeprazole Oral. --09:12 Tiffany Westbrook R.N. Topamax Oral. --:13 Tiffany Westbrook R.N. Allergies morphine. --:13 Tiffany Westbrook R.N. Guaifenesin. --:13 Tiffany Westbrook R.N. History Arrived by private vehicle. Historian: patient. Accompanied by (Norma). Primary physician ([facility]). This started last night. PAST MEDICAL HX: Immunizations: up-to-date. Last normal menstrual period- 1 week ago. SOCIAL HX: Heavy tobacco smoker (cigarette). Regular alcohol use. (weekends). History of IV drug use: cocaine, narcotics, heroin, methamphetamines, marijuana, crack, benzodiazepines. (lasted used 2008). ABUSE ASSESSMENT: Abuse assessment: The patient was asked "Do you feel safe in your home?" and "Has anyone hurt you or threatened to hurt you?". No report of abuse. SELF HARM ASSESSMENT: A self harm assessment was performed. The patient answered "no" to the question "Do you have thoughts of harming or killing yourself?" and "Have you recently had thoughts about harming or killing others?". NUTRITIONAL RISK ASSESSMENT: The nutritional risk assessment revealed no deficiencies. FUNCTIONAL ASSESSMENT: Functional assessment: no impairments noted. LEARNING NEEDS ASSESSMENT: The learning needs assessment revealed no barriers. --:14 Tiffany Westbrook R.N. PROBLEMS: Diarrhea. Vomiting. Abdominal Pain. Back Pain. Polycystic Ovary Disease. Substance Abuse. ADHD - Attention Deficit Hyperactivity Disorder. Anxiety Reaction. Bipolar Disorder. PTSD. Sprain. --:13 Tiffany Westbrook R.N. ADDITIONAL SURGERIES: Cholecystectomy. --:14 Tiffany Westbrook R.N. Interventions ID band on patient. Ambulatory. --:14 Tiffany Westbrook R.N. PHYSICAL ASSESSMENT Ambulatory to room. GENERAL / NEURO / PSYCH: Alert. Appears in no acute distress. HEENT: Mucous membranes are pink. RESPIRATORY: Respirations not labored. CVS: Capillary refill less than 2 seconds. GI / : Abdomen soft and nontender. A scant amount of vaginal discharge present ("bright yellow mucus"). SKIN: Skin is warm and dry. --:14 Tiffany Westbrook R.N. NURSING PROGRESS NOTES Head of bed elevated. Two patient identifiers checked. Call light placed in reach. Side rails up x 2. Bed placed in lowest position. Brakes of bed on. Patient ready for evaluation- chart flagged. --09:15 Tiffany Westbrook R.N. ( Bladder scanned: 17cc noted.). --09:45 Tiffany Westbrook R.N. Patient ID band checked for patient name, birthdate and medical record number: patient confirmed. Instructions provided to collect clean catch urine and patient verbalized understanding. Catheterized urine collected with return of yellow-colored clear urine; sample sent to lab for urinalysis. Specimen labeled in the presence of the patient (17cc drainged.). --09:46 Tiffany Westbrook R.N. 11:00 04/27/2017 Pyridium (Phenazopyridine HCl) PO 200 mg given. Allergies verified and confirmed 5 rights. --11:03 Tiffany Westbrook R.N. 11:00 04/27/2017 Macrobid PO 100 mg given. Allergies verified and confirmed 5 rights. --11:03 Tiffany Westbrook R.N. DISPOSITION / DISCHARGE 11:02. Departure time: 1102. Condition at departure: stable. No learning barriers present. Discharge instructions provided and reviewed with the patient. Reviewed medication(s) side effects, precautions, dosing and course information. Prescription(s) given to the patient. Reviewed referral to family practice for followup. Patient verbalized understanding. Written instructions provided in Latvian. The patient was discharged home and accompanied by job captain. She left the Emergency Department ambulatory and via private vehicle. Review Nurse driving. Medication list reviewed and validated. --11:04 Tiffany Westbrook R.N. 11:03 04/27/17. BP: 132/64. HR: 102. RR: 16. O2 saturation: 98%. Temp: 98.1 F. Pain level now 02/01. --11:04 Tiffany Westbrook R.N. Locked/Released at 04/27/2017 11:04 by Tiffany Westbrook R.N.
--- NOTE | 2017-04-27 10:54 | ED CLINICAL REPORT ---
Clinical Report - Physicians/Mid Levels [facility] [address] [place] [place] [address] 04/27/2017 9:00 Patient: MICH LOVE Time Seen: 900. Arrived- By private vehicle. Historian- patient. HISTORY OF PRESENT ILLNESS Chief Complaint: Unable to urinate. This started yesterday and still present. It was gradual in onset and has been constant but is not gone now. The symptoms are described as moderate. Modifying factors- (patient does not know makes it better or worse). The patient has had urgency of urination. Similar symptoms previously: None. Recent medical care: Not recently seen/assessed. REVIEW OF SYSTEMS No fever, chills, cough, difficulty breathing or skin rash. All systems otherwise negative, except as recorded above. PAST HISTORY See nurses notes. Medications: Topamax Oral. Omeprazole Oral. Loratadine Oral. Vicodin Oral 10 mg, 2x a day. Gabapentin Oral 1200mg , daily. MetFORMIN HCl Oral 1200mg daily. LaMICtal Oral (Tablet 150 mg), at bedtime. RisperiDONE Oral 4 mg, at bedtime. Trileptal Oral 900mg , at bedtime. Prazosin HCl Oral 4mg, at bedtime. Allergies: Guaifenesin. morphine. SOCIAL HISTORY Smoker- current status unknown. Alcohol use. History of drug use. No recent travel. Is a local resident. ADDITIONAL NOTES The nursing notes have been reviewed. PHYSICAL EXAM Vital Signs: 04/27/2017 09:05 BP: 119/67. HR: 114. RR: 16. O2 saturation: 98%. Temp: 97.4 F. Pain level now: 4/10. Blood pressure normal. Oxygen saturation normal. Appearance: Alert. Oriented X3. No acute distress. (nontoxic. polite. Cooperative). HEENT: Normal external inspection. ENT: Pharynx normal. Neck: Neck supple. CVS: Heart sounds normal. Respiratory: No respiratory distress. Breath sounds normal. Chest nontender. Abdomen: Soft and nontender. Bowel sounds normal. No mass. (increased urgency with palpation of the suprapubic region. nontender.). Skin: Skin warm and dry. Normal skin color. No rash. Normal skin turgor. Extremities: Extremities nontender. No lower extremity edema. Neuro: Disoriented. Mood/affect normal. LABS, X-RAYS, AND EKG Laboratory Tests: UA-Culture if indicated: (CHAMP: 04/27/2017 09:35) ( [facility] 04/27/2017 10:43) Final results Test Result Flag Units (Reference) URINE COLOR YELLOW URINE APPEARANCE CLEAR URINE GLUCOSE NEGATIVE (NEGATIVE) URINE BILIRUBIN 1+ (NEGATIVE) URINE KETONE TRACE (NEGATIVE) URINE SPECIFIC GRAVITY >= 1.030 (1.010-1.030) URINE PH 5.0 (5.0-8.0) URINE PROTEIN 1+ (NEGATIVE) URINE UROBILINOGEN 0.2 EU/dL (0.2-1.0) URINE NITRITE NEGATIVE (NEGATIVE) URINE BLOOD NEGATIVE (NEGATIVE) URINE LEUK ESTERASE NEGATIVE (NEGATIVE) URINE RBC 0-1 rbc/hpf (0-1) URINE WBC 0-1 wbc/hpf (0-1) URINE EPITHELIAL CELLS 1-3 EPI/hpf (0-5) URINE BACTERIA TRACE (<1+) (NONE SEEN) URINE COMMENT CULT NOT INDICATED URINE CULTURES ARE SET-UP BASED ON THE FOLLOWING CRITERIA:POSITIVE NITRITEPOSITIVE LEUKOCYTE ESTERASEGREATER THAN 10 WHITE BLOOD CELLSMODERATE (2+) OR GREATER BACTERIA Urine: (CHAMP: 04/27/2017 09:35) ( [facility] 04/27/2017 09:46) Final results Test Result Flag Units (Reference) URINE NEGATIVE . PROGRESS AND PROCEDURES Course of Care: The patient is a pleasant 36-year-old female with past medical history significant for what she describes as a vaginal sling procedure for stress incontinence as well as complex psychiatric history presenting for a vaginal urinaryretention. Would be concern for urgency rather than retention based on patient's history. Bladder scan was ordered for evaluation of the amount of residual fluid noted in patient's bladder. Urinalysis was also ordered for potential urinary tract infection. Patient is agreeable to the treatment plan. The patient's workup was markable for the findings above. Urinalysis did not show significant signs of urinary tract infection however because of the patient's symptoms, would be concern for underlying urinary tract infection. Was able to obtain a catheter sample as the patient had only 17 cc of urine in her bladder. No signs of significant urinary retention. Did not feel Esquivel catheter was required at this time. Because of the patient's negative workup here in the emergency department and overall negative evaluation for urinary retention, do not feel further workup here in the emergency department is req Discussed with the patient her workup here in the emergency department as well as her diagnosis, home care, follow-up, and return precautions. All questions have been answered. The patient expressed understanding of these instructions and was agreeable to them. Disposition: Discharged. Condition: good. CLINICAL IMPRESSION Acute urinary tract infection with cystitis. INSTRUCTIONS Warnings: GENERAL WARNINGS: Return or contact your physician immediately if your condition worsens or changes unexpectedly, if not improving as expected, or if other problems arise. Specifically return if pain, vomiting, bleeding, breathing difficulty or fever. Your Current Medications: CONTINUE TAKING THE FOLLOWING MEDICATIONS: Gabapentin Oral : 1200mg daily. LaMICtal Oral : Tablet 150 mg, at bedtime. Loratadine Oral. MetFORMIN HCl Oral : 1200mg daily. Omeprazole Oral. Prazosin HCl Oral : 4mg at bedtime. RisperiDONE Oral : 4 mg at bedtime. Topamax Oral. Trileptal Oral : 900mg at bedtime. Vicodin Oral : 10 mg 2x a day. Prescription Medications: Macrobid 100 mg: take 1 capsule orally every 12 hours for 5 days. No refill. Substitution is permissible. (Disp 10 caps) Pyridium 200 mg: take 1 orally every 8 hours for 2 days. No refill. Substitution is permissible. (Disp 6.) Follow-up: Return to the emergency department as needed. Follow up with your doctor in three days. Reason for referral: recheck today's concerns. Summary of care provided to patient via paper. Screening today revealed the patient's blood pressure to be in the normal range. The patient should follow up with a primary care provider for blood pressure management. Understanding of the discharge instructions verbalized by patient. (Electronically signed by Rashad Mcdaniel Dr. 04/28/2017 14:00)
--- NOTE | 2017-04-28 14:01 | ED MAR SUMMARY ---
..... Medication Administration Record [facility] [address] [place] [address] Patient: MICH LOVE Visit ID: [id number] 36y, F Weight: 130.6 kg Height/Length: 67 in BMI: 45.1 ALLERGIES: Guaifenesin, morphine Given 11:04/27/2017 Tiffany Westbrook, RGamalielN. Medication Administered: PYRIDIUM [PO] (PHENAZOPYRIDINE HCL), Dose: 200 mg PO. Medication Ordered: Pyridium PO 200 mg (NOW). Given 11:00 04/27/2017 Tiffany Westbrook, RGamalielN. Medication Administered: MACROBID [PO], Dose: 100 mg PO. Medication Ordered: Macrobid PO 100 mg (NOW).
--- NOTE | 2017-04-28 14:01 | ED MED RECONCILIATION SUMMARY ---
Patient: MICH LOVE Medication Reconciliation Report [facility] VisitID: [id number] [address] [place] [address] 36y, F Registration Date/Time: 04/27/2017 Weight: 130.6 kg Height/Length: 67 in. BMI: 45.1 ALLERGIES: Guaifenesin, morphine The patient's Home Medications are listed below: CONTINUE TAKING THE FOLLOWING MEDICATIONS: Gabapentin Oral 1200mg , daily LaMICtal Oral (150 mg), at bedtime Loratadine Oral MetFORMIN HCl Oral 1200mg daily Omeprazole Oral Prazosin HCl Oral 4mg, at bedtime RisperiDONE Oral 4 mg, at bedtime Topamax Oral Trileptal Oral 900mg , at bedtime Vicodin Oral 10 mg, 2x a day The source(s) of the original Home Medication information: Not obtained. The following Medications were given to the patient in the Emergency Department: Pyridium [PO] PO 200 mg, administered: 04/27/2017 11:00:00 AM Macrobid [PO] PO 100 mg, administered: 04/27/2017 11:00:00 AM The following Medications were prescribed to the patient: Macrobid 100 mg: take 1 capsule orally every 12 hours for 5 days. No refill. Substitution is permissible.(Disp 10 caps) -- Rashad Mcdaniel Dr. Pyridium 200 mg: take 1 orally every 8 hours for 2 days. No refill. Substitution is permissible.(Disp 6.) -- Rashad Mcdaniel Dr.
--- NOTE | 2017-04-28 14:01 | ED MAR SUMMARY ---
..... Medication Administration Record [facility] [address] [place] [address] Patient: MICH LOVE Visit ID: [id number] 36y, F Weight: 130.6 kg Height/Length: 67 in BMI: 45.1 ALLERGIES: Guaifenesin, morphine Given 11:04/27/2017 Tiffany Westbrook, RGamalielN. Medication Administered: PYRIDIUM [PO] (PHENAZOPYRIDINE HCL), Dose: 200 mg PO. Medication Ordered: Pyridium PO 200 mg (NOW). Given 11:00 04/27/2017 Tiffany Westbrook, RGamalielN. Medication Administered: MACROBID [PO], Dose: 100 mg PO. Medication Ordered: Macrobid PO 100 mg (NOW).
--- NOTE | 2017-04-28 14:01 | ED MED RECONCILIATION SUMMARY ---
Patient: MICH LOVE Medication Reconciliation Report [facility] VisitID: [id number] [address] [place] [address] 36y, F Registration Date/Time: 04/27/2017 Weight: 130.6 kg Height/Length: 67 in. BMI: 45.1 ALLERGIES: Guaifenesin, morphine The patient's Home Medications are listed below: CONTINUE TAKING THE FOLLOWING MEDICATIONS: Gabapentin Oral 1200mg , daily LaMICtal Oral (150 mg), at bedtime Loratadine Oral MetFORMIN HCl Oral 1200mg daily Omeprazole Oral Prazosin HCl Oral 4mg, at bedtime RisperiDONE Oral 4 mg, at bedtime Topamax Oral Trileptal Oral 900mg , at bedtime Vicodin Oral 10 mg, 2x a day The source(s) of the original Home Medication information: Not obtained. The following Medications were given to the patient in the Emergency Department: Pyridium [PO] PO 200 mg, administered: 04/27/2017 11:00:00 AM Macrobid [PO] PO 100 mg, administered: 04/27/2017 11:00:00 AM The following Medications were prescribed to the patient: Macrobid 100 mg: take 1 capsule orally every 12 hours for 5 days. No refill. Substitution is permissible.(Disp 10 caps) -- Rashad Mcdaniel Dr. Pyridium 200 mg: take 1 orally every 8 hours for 2 days. No refill. Substitution is permissible.(Disp 6.) -- Rashad Mcdaniel Dr.
--- NOTE | 2017-04-28 14:01 | ED DISCHARGE INSTRUCTIONS ---
Patient: MICH LOVE General Instructions [facility] VisitID: [id number] [address] [place] [address] 36y, F Registration Date/Time: 04/27/2017 Acute urinary tract infection with cystitis. INSTRUCTIONS Warnings: GENERAL WARNINGS: Return or contact your physician immediately if your condition worsens or changes unexpectedly, if not improving as expected, or if other problems arise. Specifically return if pain, vomiting, bleeding, breathing difficulty or fever. Your Current Medications: CONTINUE TAKING THE FOLLOWING MEDICATIONS: Gabapentin Oral : 1200mg daily. LaMICtal Oral : Tablet 150 mg, at bedtime. Loratadine Oral. MetFORMIN HCl Oral : 1200mg daily. Omeprazole Oral. Prazosin HCl Oral : 4mg at bedtime. RisperiDONE Oral : 4 mg at bedtime. Topamax Oral. Trileptal Oral : 900mg at bedtime. Vicodin Oral : 10 mg 2x a day. Prescription Medications: Macrobid 100 mg: take 1 capsule orally every 12 hours for 5 days. No refill. Substitution is permissible. (Disp 10 caps) Pyridium 200 mg: take 1 orally every 8 hours for 2 days. No refill. Substitution is permissible. (Disp 6.) Follow-up: Return to the emergency department as needed. Follow up with your doctor in three days. Reason for referral: recheck today's concerns. Summary of care provided to patient via paper. Screening today revealed the patient's blood pressure to be in the normal range. The patient should follow up with a primary care provider for blood pressure management. Understanding of the discharge instructions verbalized by patient. ADDITIONAL INFORMATION Bladder Infection,Female (Adult) A bladder infection ("cystitis" or "UTI") usually causes a constant urge to urinate and a burning when passing urine. Urine may be cloudy, smelly or dark. There may be pain in the lower abdomen. A bladder infection occurs when bacteria from the vaginal area enter the bladder opening (urethra). This can occur from sexual intercourse, wearing tight clothing, dehydration and other factors. Home Care: Drink lots of fluids (at least 6-8 glasses a day, unless you must restrict fluids for other medical reasons). This will force the medicine into your urinary system and flush the bacteria out of your body. Avoid sexual intercourse until your symptoms are gone. Avoid caffeine, alcohol and spicy foods. These can irritate the bladder. A bladder infection is treated with antibiotics. You may also be given Pyridium (generic = phenazopyridine) to reduce the burning sensation. This medicine will cause your urine to become a bright orange color. The orange urine may stain clothing. You may wear a pad or panty-liner to protect clothing. Preventing Future Infections: Always wipe from front to back after a bowel movement. Keep the genital area clean and dry. Drink plenty of fluids each day to avoid dehydration. Both sexual partners should wash before intercourse. Urinate right after intercourse to flush out the bladder. Wear cotton underwear and cotton-lined panty hose; avoid tight-fitting pants. If you are on control pills and are having frequent bladder infections, discuss with your doctor. Follow Up: Return to this facility or see your doctor if ALL symptoms are not gone after three days of treatment. Get Prompt Medical Attention if any of the following occur: Fever of 100.4F (38C) or higher, or as directed by your healthcare provider No improvement by the third day of treatment Increasing back or abdominal pain Repeated vomiting; unable to keep medicine down Weakness, dizziness or fainting Vaginal discharge Pain, redness or swelling in the labia (outer vaginal area) Nitrofurantoin, Nitrofurantoin, Macrocrystalline Oral capsule What is this medicine? NITROFURANTOIN (jong patel) is an antibiotic. It is used to treat urinary tract infections. How should I use this medicine? Take this medicine by mouth with a glass of water. Follow the directions on the prescription label. Take this medicine with food or milk. Take your doses at regular intervals. Do not take your medicine more often than directed. Do not stop taking except on your doctor's advice. Talk to your mortgage clerk regarding the use of this medicine in children. While this drug may be prescribed for selected conditions, precautions do apply. What side effects may I notice from receiving this medicine? Side effects that you should report to your doctor or health wound care specialist as soon as possible: allergic reactions like skin rash or hives, swelling of the face, lips, or tongue chest pain cough difficulty breathing dizziness, drowsiness fever or infection joint aches or pains pale or blue-tinted skin redness, blistering, peeling or loosening of the skin, including inside the mouth tingling, burning, pain, or numbness in hands or feet unusual bleeding or bruising unusually weak or tired yellowing of eyes or skin Side effects that usually do not require medical attention (report to your doctor or health wound care specialist if they continue or are bothersome): dark urine diarrhea headache loss of appetite nausea or vomiting temporary hair loss What may interact with this medicine? antacids containing magnesium trisilicate probenecid quinolone antibiotics like ciprofloxacin, lomefloxacin, norfloxacin and ofloxacin sulfinpyrazone What if I miss a dose? If you miss a dose, take it as soon as you can. If it is almost time for your next dose, take only that dose. Do not take double or extra doses. Where should I keep my medicine? Keep out of the reach of children. Store at room temperature between 15 and 30 degrees C (59 and 86 degrees F). Protect from light. Throw away any unused medicine after the expiration date. What should I tell my health care provider before I take this medicine? They need to know if you have any of these conditions: anemia diabetes hvwvhts-[id number] dehydrogenase deficiency kidney disease liver disease lung disease other chronic illness an unusual or allergic reaction to nitrofurantoin, other antibiotics, other medicines, foods, dyes or preservatives or trying to get breast-feeding What should I watch for while using this medicine? Tell your doctor or health wound care specialist if your symptoms do not improve or if you get new symptoms. Drink several glasses of water a day. If you are taking this medicine for a long time, visit your doctor for regular checks on your progress. If you are diabetic, you may get a false positive result for sugar in your urine with certain brands of urine tests. Check with your doctor. Phenazopyridine Hydrochloride Oral tablet What is this medicine? PHENAZOPYRIDINE (fen az oh PEER i adebayo) is a pain reliever. It is used to stop the pain, burning, or discomfort caused by infection or irritation of the urinary tract. This medicine is not an antibiotic. It will not cure a urinary tract infection. How should I use this medicine? Take this medicine by mouth with a glass of water. Follow the directions on the prescription label. Take after meals. Take your doses at regular intervals. Do not take your medicine more often than directed. Do not skip doses or stop your medicine early even if you feel better. Do not stop taking except on your doctor's advice. Talk to your mortgage clerk regarding the use of this medicine in children. Special care may be needed. What side effects may I notice from receiving this medicine? Side effects that you should report to your doctor or health wound care specialist as soon as possible: allergic reactions like skin rash, itching or hives, swelling of the face, lips, or tongue blue or purple color of the skin difficulty breathing fever less urine unusual bleeding, bruising unusual tired, weak vomiting yellowing of the eyes or skin Side effects that usually do not require medical attention (report to your doctor or health wound care specialist if they continue or are bothersome): dark urine headache stomach upset What may interact with this medicine? Interactions are not expected. What if I miss a dose? If you miss a dose, take it as soon as you can. If it is almost time for your next dose, take only that dose. Do not take double or extra doses. Where should I keep my medicine? Keep out of the reach of children. Store at room temperature between 15 and 30 degrees C (59 and 86 degrees F). Protect from light and moisture. Throw away any unused medicine after the expiration date. What should I tell my health care provider before I take this medicine? They need to know if you have any of these conditions: orlxxlu-6-ouohjueym dehydrogenase (G6PD) deficiency kidney disease an unusual or allergic reaction to phenazopyridine, other medicines, foods, dyes, or preservatives or trying to get breast-feeding What should I watch for while using this medicine? Tell your doctor or health wound care specialist if your symptoms do not improve or if they get worse. This medicine colors body fluids red. This effect is harmless and will go away after you are done taking the medicine. It will change urine to an dark orange or red color. The red color may stain clothing. Soft contact lenses may become permanently stained. It is best not to wear soft contact lenses while taking this medicine. If you are diabetic you may get a false positive result for sugar in your urine. Talk to your health care provider. You have been given the following additional information: Bladder Infection, Female (Adult) Nitrofurantoin, Nitrofurantoin, Macrocrystalline Oral capsule Phenazopyridine Hydrochloride Oral tablet (Electronically signed by Rashad Mcdaniel Dr. 04/28/2017 14:00)
--- NOTE | 2017-04-28 14:01 | ED DISCHARGE INSTRUCTIONS ---
Patient: MICH LOVE General Instructions [facility] VisitID: [id number] [address] [place] [address] 36y, F Registration Date/Time: 04/27/2017 Acute urinary tract infection with cystitis. INSTRUCTIONS Warnings: GENERAL WARNINGS: Return or contact your physician immediately if your condition worsens or changes unexpectedly, if not improving as expected, or if other problems arise. Specifically return if pain, vomiting, bleeding, breathing difficulty or fever. Your Current Medications: CONTINUE TAKING THE FOLLOWING MEDICATIONS: Gabapentin Oral : 1200mg daily. LaMICtal Oral : Tablet 150 mg, at bedtime. Loratadine Oral. MetFORMIN HCl Oral : 1200mg daily. Omeprazole Oral. Prazosin HCl Oral : 4mg at bedtime. RisperiDONE Oral : 4 mg at bedtime. Topamax Oral. Trileptal Oral : 900mg at bedtime. Vicodin Oral : 10 mg 2x a day. Prescription Medications: Macrobid 100 mg: take 1 capsule orally every 12 hours for 5 days. No refill. Substitution is permissible. (Disp 10 caps) Pyridium 200 mg: take 1 orally every 8 hours for 2 days. No refill. Substitution is permissible. (Disp 6.) Follow-up: Return to the emergency department as needed. Follow up with your doctor in three days. Reason for referral: recheck today's concerns. Summary of care provided to patient via paper. Screening today revealed the patient's blood pressure to be in the normal range. The patient should follow up with a primary care provider for blood pressure management. Understanding of the discharge instructions verbalized by patient. ADDITIONAL INFORMATION Bladder Infection,Female (Adult) A bladder infection ("cystitis" or "UTI") usually causes a constant urge to urinate and a burning when passing urine. Urine may be cloudy, smelly or dark. There may be pain in the lower abdomen. A bladder infection occurs when bacteria from the vaginal area enter the bladder opening (urethra). This can occur from sexual intercourse, wearing tight clothing, dehydration and other factors. Home Care: Drink lots of fluids (at least 6-8 glasses a day, unless you must restrict fluids for other medical reasons). This will force the medicine into your urinary system and flush the bacteria out of your body. Avoid sexual intercourse until your symptoms are gone. Avoid caffeine, alcohol and spicy foods. These can irritate the bladder. A bladder infection is treated with antibiotics. You may also be given Pyridium (generic = phenazopyridine) to reduce the burning sensation. This medicine will cause your urine to become a bright orange color. The orange urine may stain clothing. You may wear a pad or panty-liner to protect clothing. Preventing Future Infections: Always wipe from front to back after a bowel movement. Keep the genital area clean and dry. Drink plenty of fluids each day to avoid dehydration. Both sexual partners should wash before intercourse. Urinate right after intercourse to flush out the bladder. Wear cotton underwear and cotton-lined panty hose; avoid tight-fitting pants. If you are on control pills and are having frequent bladder infections, discuss with your doctor. Follow Up: Return to this facility or see your doctor if ALL symptoms are not gone after three days of treatment. Get Prompt Medical Attention if any of the following occur: Fever of 100.4F (38C) or higher, or as directed by your healthcare provider No improvement by the third day of treatment Increasing back or abdominal pain Repeated vomiting; unable to keep medicine down Weakness, dizziness or fainting Vaginal discharge Pain, redness or swelling in the labia (outer vaginal area) Nitrofurantoin, Nitrofurantoin, Macrocrystalline Oral capsule What is this medicine? NITROFURANTOIN (jong patel) is an antibiotic. It is used to treat urinary tract infections. How should I use this medicine? Take this medicine by mouth with a glass of water. Follow the directions on the prescription label. Take this medicine with food or milk. Take your doses at regular intervals. Do not take your medicine more often than directed. Do not stop taking except on your doctor's advice. Talk to your electron beam photo mask technician regarding the use of this medicine in children. While this drug may be prescribed for selected conditions, precautions do apply. What side effects may I notice from receiving this medicine? Side effects that you should report to your doctor or health child care assistant as soon as possible: allergic reactions like skin rash or hives, swelling of the face, lips, or tongue chest pain cough difficulty breathing dizziness, drowsiness fever or infection joint aches or pains pale or blue-tinted skin redness, blistering, peeling or loosening of the skin, including inside the mouth tingling, burning, pain, or numbness in hands or feet unusual bleeding or bruising unusually weak or tired yellowing of eyes or skin Side effects that usually do not require medical attention (report to your doctor or health child care assistant if they continue or are bothersome): dark urine diarrhea headache loss of appetite nausea or vomiting temporary hair loss What may interact with this medicine? antacids containing magnesium trisilicate probenecid quinolone antibiotics like ciprofloxacin, lomefloxacin, norfloxacin and ofloxacin sulfinpyrazone What if I miss a dose? If you miss a dose, take it as soon as you can. If it is almost time for your next dose, take only that dose. Do not take double or extra doses. Where should I keep my medicine? Keep out of the reach of children. Store at room temperature between 15 and 30 degrees C (59 and 86 degrees F). Protect from light. Throw away any unused medicine after the expiration date. What should I tell my health care provider before I take this medicine? They need to know if you have any of these conditions: anemia diabetes xsbvqdp-8-zpjjsiugs dehydrogenase deficiency kidney disease liver disease lung disease other chronic illness an unusual or allergic reaction to nitrofurantoin, other antibiotics, other medicines, foods, dyes or preservatives or trying to get breast-feeding What should I watch for while using this medicine? Tell your doctor or health child care assistant if your symptoms do not improve or if you get new symptoms. Drink several glasses of water a day. If you are taking this medicine for a long time, visit your doctor for regular checks on your progress. If you are diabetic, you may get a false positive result for sugar in your urine with certain brands of urine tests. Check with your doctor. Phenazopyridine Hydrochloride Oral tablet What is this medicine? PHENAZOPYRIDINE (fen az oh PEER i adebayo) is a pain reliever. It is used to stop the pain, burning, or discomfort caused by infection or irritation of the urinary tract. This medicine is not an antibiotic. It will not cure a urinary tract infection. How should I use this medicine? Take this medicine by mouth with a glass of water. Follow the directions on the prescription label. Take after meals. Take your doses at regular intervals. Do not take your medicine more often than directed. Do not skip doses or stop your medicine early even if you feel better. Do not stop taking except on your doctor's advice. Talk to your electron beam photo mask technician regarding the use of this medicine in children. Special care may be needed. What side effects may I notice from receiving this medicine? Side effects that you should report to your doctor or health child care assistant as soon as possible: allergic reactions like skin rash, itching or hives, swelling of the face, lips, or tongue blue or purple color of the skin difficulty breathing fever less urine unusual bleeding, bruising unusual tired, weak vomiting yellowing of the eyes or skin Side effects that usually do not require medical attention (report to your doctor or health child care assistant if they continue or are bothersome): dark urine headache stomach upset What may interact with this medicine? Interactions are not expected. What if I miss a dose? If you miss a dose, take it as soon as you can. If it is almost time for your next dose, take only that dose. Do not take double or extra doses. Where should I keep my medicine? Keep out of the reach of children. Store at room temperature between 15 and 30 degrees C (59 and 86 degrees F). Protect from light and moisture. Throw away any unused medicine after the expiration date. What should I tell my health care provider before I take this medicine? They need to know if you have any of these conditions: bbsnjyx-5-heljxxupi dehydrogenase (G6PD) deficiency kidney disease an unusual or allergic reaction to phenazopyridine, other medicines, foods, dyes, or preservatives or trying to get breast-feeding What should I watch for while using this medicine? Tell your doctor or health child care assistant if your symptoms do not improve or if they get worse. This medicine colors body fluids red. This effect is harmless and will go away after you are done taking the medicine. It will change urine to an dark orange or red color. The red color may stain clothing. Soft contact lenses may become permanently stained. It is best not to wear soft contact lenses while taking this medicine. If you are diabetic you may get a false positive result for sugar in your urine. Talk to your health care provider. You have been given the following additional information: Bladder Infection, Female (Adult) Nitrofurantoin, Nitrofurantoin, Macrocrystalline Oral capsule Phenazopyridine Hydrochloride Oral tablet (Electronically signed by Rashad Mcdaniel Dr. 04/28/2017 14:00)
== END 2017-04-27 11:02 | disposition home or self-care (01) ==
LOC: ED SRH 08:59
DX: N30.90 Cystitis, unspecified without hematuria (principal); F17.210 Nicotine dependence, cigarettes, uncomplicated; Z79.899 Other long term (current) drug therapy
CPT/HCPCS: 90004; 93070